=== PATIENT | female | born 1960 | race Two or more races ===

== ENCOUNTER 2022-09-21 09:33 | Outpatient (REF) | payer OTHER, SELFPAY ==
[2022-09-21 09:54] VITALS: BP 140/76; PULSE 72; RESP 16; TEMP 36.2; O2SAT 98; BMI 30.6
[2022-09-21 11:57] VITALS: BP 132/74; PULSE 72; RESP 16; O2SAT 98
== END 2022-09-21 09:34 | disposition home or self-care (01) ==
LOC: HO.MS 09:33
PROVIDERS: PCP Internal Medicine; Visit Provider Ophthalmology
PROC: (CPT 67840; principal; 2022-09-21 11:10)
DX: L98.9 Disorder of the skin and subcutaneous tissue, unspecified (principal); L82.1 Other seborrheic keratosis; H40.013 Open angle with borderline findings, low risk, bilateral; H52.4 Presbyopia; E11.9 Type 2 diabetes mellitus without complications; E78.00 Pure hypercholesterolemia, unspecified; G47.30 Sleep apnea, unspecified; Z79.84 Long term (current) use of oral hypoglycemic drugs; Z79.82 Long term (current) use of aspirin; Z79.899 Other long term (current) drug therapy; Z87.891 Personal history of nicotine dependence
CPT/HCPCS: 67840; 88305; 88331

== ENCOUNTER 2023-12-03 14:42 | Outpatient (AMB) | payer OTHER, SELFPAY ==
[2023-12-03 14:51] VITALS: BP 132/70; PULSE 90; O2SAT 97; BMI 28.4
--- NOTE | 2023-12-03 14:51 | MHC.OFFVIS ---
Intake Vital Signs 12/03/23 14:51 Height 5 ft 5 in Weight 170 lb 13.732 oz BMI 28.4 BP 132/70 Blood Pressure Location Rt brachial Position Sitting Pulse 90 Pulse Source Pulse Oximeter Pulse Oximetry (%) 97 Oxygen Delivery Method Room Air Intake Visit Reasons: Obstructive sleep apnea [employer] Required: No Allergies No Known Allergies Allergy (Verified 12/03/23 14:54) HPI HPI Comments History of Present Illness Details The patient is here for pulmonary evaluation. The patient is a 62 year woman with a known history of sleep apnea. She has been on CPAP now for numerous years. The CPAP therapy has been very affecting beneficial. She does use a nasal mask. Unfortunately causes a lot of dry mouth. I did recommend she switch over to a fullface mask. She also has significant chronic rhinitis. Moderate severity with nasal congestion. Sometimes is hard for tolerate the nasal mask with the pressures directly to her nasal passages. Explained to her that a fullface mask will help with that too. I did have an F30 I small mask available in the office which she did try on and she will go ahead and continue to try it at home. If she finds that this mass is helpful then we can go ahead and send a prescription for it. otherwise, she can go back to her nasal mask using a chinstrap. Explained to her the the dry mouth could result in significant gingival dryness that can resulting to decay. Also, the patient had a significant allergic reaction where she went to the ER just this morning after having significant swelling throughout her body. She was given IV steroids currently on prednisone. A my examination today she has significant tachycardia and also has a flow murmur appreciated. The patient is aware other murmur already. Most likely that the significant heart rate could be related to hyperglycemia with her underlying diabetes and steroid use today. The patient will monitor closely her blood sugars once she gets home. She is going to also stay hydrated. [facility] Medical History (Updated 12/05/23 @ 21:42 by Vernon Echols MD) Murmur Nasal congestion Tachycardia BRIA (obstructive sleep apnea) Social History (Updated 12/03/23 @ 14:58 by ROCÍO Damon) Patient Tobacco Use Status: Former Tobacco user Tobacco use type: Cigarette Years Smoked: 10 Years Review of Systems Const Denies fatigue Eyes Denies dry eyes ENT Reports dry mouth and Reports nasal congestion Card Denies chest pain Resp Denies cough and Denies wheezing GI Reports no additional complaints Musc Reports no additional complaints Skin/Breast Reports pruritus and Reports rash Neuro Reports no additional complaints Endo Denies fatigue Randolph/Lymph Denies lymphadenopathy Aller/Immun Denies wheezing Physical Exam Vital Signs: Last Vital Signs Pulse 90 12/03/23 14:51 BP 132/70 12/03/23 14:51 Pulse Ox 97 12/03/23 14:51 Oxygen Delivery Method Room Air 12/03/23 14:51 BMI result Body Mass Index 28.4 Const General: comfortable HEENT Head: Yes normocephalic Neck Neck: Yes supple Chest Chest palpation & inspection: normal inspection of the chest Resp Effort & Inspection: normal respiratory effort Auscultation: clear to auscultation bilaterally Cardio Rate: tachycardic Rhythm: regular rhythm Heart sounds: S1 normal heart sound present, S2 normal heart sound present and Murmur heart sound present GI Palpation (GI): Soft to palpation Skin General skin exam: no rashes or lesions noted Extrem General: Yes no clubbing, cyanosis or edema Assessment & Plan Assessment & Plan (1) BRIA (obstructive sleep apnea): Code(s): G47.33 - Obstructive sleep apnea (adult) (pediatric) (2) Tachycardia: Comment: Likely due to prednisone and likely hyperglycemia Code(s): R00.0 - Tachycardia, unspecified (3) Nasal congestion: Code(s): R09.81 - Nasal congestion (4) Murmur: Code(s): R01.1 - Cardiac murmur, unspecified Plan Continue APAP, Trial F30i small mask nasal therapy and rinsing monitor BS and stay hydrated F/U with PCP re: murmur F/U 4-6 months Coding Level of Care Code New Pt Level 4 (42572) Diagnoses BRIA (obstructive sleep apnea) G47.33 Tachycardia R00.0 Nasal congestion R09.81 Murmur R01.1 Time Spent (min) 40
== END 2023-12-03 15:17 | disposition home or self-care (01) ==
PROVIDERS: PCP Internal Medicine; Referring Provider Internal Medicine; Visit Provider Hospitalist
DX: G47.33 Obstructive sleep apnea (adult) (pediatric) (principal); R00.0 Tachycardia, unspecified; R09.81 Nasal congestion; R01.1 Cardiac murmur, unspecified
CPT/HCPCS: 99204

== ENCOUNTER → 2023-12-03 14:42 | Outpatient (BNVA) | payer OTHER, SELFPAY | PROVIDERS: PCP Internal Medicine; Referring Provider Internal Medicine; Visit Provider Hospitalist | DX: G47.33 Obstructive sleep apnea (adult) (pediatric) (principal); R00.0 Tachycardia, unspecified; R09.81 Nasal congestion; R01.1 Cardiac murmur, unspecified | CPT/HCPCS: 99202 ==

== ENCOUNTER 2024-06-01 08:46 | Outpatient (AMB) | payer OTHER, SELFPAY ==
--- NOTE | 2024-06-01 08:48 | MHC.OFFVIS ---
Vital Signs 06/01/24 08:49 Height 5 ft 5 in Weight 171 lb BMI 28.5 BP 128/70 Blood Pressure Location Lt brachial Position Sitting Pulse 74 Pulse Source Pulse Oximeter Pulse Oximetry (%) 98 Oxygen Delivery Method Room Air Intake Visit Reasons: Obstructive sleep apnea [employer] Required: No Allergies No Known Allergies Allergy (Verified 06/01/24 08:52) HPI Comments Details: The patient is a 63 year woman with a known history of sleep apnea. She has been on CPAP now for numerous years. The CPAP therapy has been very affecting beneficial. She does use a nasal mask. Unfortunately causes a lot of dry mouth. I did recommend she switch over to a fullface mask. She also has significant chronic rhinitis. Moderate severity with nasal congestion. Sometimes is hard for tolerate the nasal mask with the pressures directly to her nasal passages. Explained to her that a fullface mask will help with that too. I did have an F30 I small mask available in the office which she did try on and she will go ahead and continue to try it at home. If she finds that this mass is helpful then we can go ahead and send a prescription for it. otherwise, she can go back to her nasal mask using a chinstrap. Explained to her the the dry mouth could result in significant gingival dryness that can resulting to decay. Also, the patient had a significant allergic reaction where she went to the ER just this morning after having significant swelling throughout her body. She was given IV steroids currently on prednisone. A my examination today she has significant tachycardia and also has a flow murmur appreciated. The patient is aware other murmur already. Most likely that the significant heart rate could be related to hyperglycemia with her underlying diabetes and steroid use today. The patient will monitor closely her blood sugars once she gets home. She is going to also stay hydrated. 06/01/2024 The patient is here for a pulmonary follow up visit. Overall doing well. Did not tolerate the F30 mask. Prefers her nasal mask, but having a dry mouth. I will request a chin strap for her. Also adjusted her CPAP 8 to APAP 6-10. She will call if any issues. He nasal congestion is overall better. Still has a post nasal drip and cough, but mild and intermitent. [facility] Medical History (Updated 06/02/24 @ 14:02 by Vernon Echols MD) Murmur Nasal congestion Tachycardia BRIA (obstructive sleep apnea) Social History (Updated 12/03/23 @ 14:58 by ROCÍO Damon) Patient Tobacco Use Status: Former Tobacco user Tobacco use type: Cigarette Years Smoked: 10 Years Review of Systems Const Denies fatigue Eyes Denies dry eyes ENT Reports dry mouth and Reports nasal congestion Card Denies chest pain Resp Denies cough and Denies wheezing GI Reports no additional complaints Musc Reports no additional complaints Skin/Breast Reports pruritus and Reports rash Neuro Reports no additional complaints Endo Denies fatigue Randolph/Lymph Denies lymphadenopathy Aller/Immun Denies wheezing Physical Exam Vital Signs: Last Vital Signs Pulse 74 06/01/24 08:49 BP 128/70 06/01/24 08:49 Pulse Ox 98 06/01/24 08:49 Oxygen Delivery Method Room Air 06/01/24 08:49 BMI result Body Mass Index 28.5 Const General: comfortable HEENT Head: Yes normocephalic Neck Neck: Yes supple Chest Chest palpation & inspection: normal inspection of the chest Resp Effort & Inspection: normal respiratory effort Auscultation: clear to auscultation bilaterally Cardio Rate: tachycardic Rhythm: regular rhythm Heart sounds: S1 normal heart sound present, S2 normal heart sound present and Murmur heart sound present GI Palpation (GI): Soft to palpation Skin General skin exam: no rashes or lesions noted Extrem General: Yes no clubbing, cyanosis or edema Assessment & Plan Assessment & Plan (1) BRIA (obstructive sleep apnea): Code(s): G47.33 - Obstructive sleep apnea (adult) (pediatric) Category: Medical (2) Tachycardia: Comment: better Code(s): R00.0 - Tachycardia, unspecified Category: Medical (3) Nasal congestion: Code(s): R09.81 - Nasal congestion Category: Medical (4) Murmur: Code(s): R01.1 - Cardiac murmur, unspecified Category: Medical Plan Continue APAP, needs chin strap with nasal mask nasal therapy and rinsing F/U with PCP re: murmur F/U 6-8 months Coding Level of Care Code Est Pt Level 4 (52292) Diagnoses BRIA (obstructive sleep apnea) G47.33 Tachycardia R00.0 Nasal congestion R09.81 Murmur R01.1 Time Spent (min) 16
[2024-06-01 08:49] VITALS: BP 128/70; PULSE 74; O2SAT 98; BMI 28.5
== END 2024-06-01 09:18 | disposition home or self-care (01) ==
PROVIDERS: PCP Internal Medicine; Visit Provider Hospitalist
DX: G47.33 Obstructive sleep apnea (adult) (pediatric) (principal); R00.0 Tachycardia, unspecified; R09.81 Nasal congestion; R01.1 Cardiac murmur, unspecified
CPT/HCPCS: 99214

== ENCOUNTER → 2024-06-01 08:46 | Outpatient (BNVA) | payer OTHER, SELFPAY | PROVIDERS: PCP Internal Medicine; Visit Provider Hospitalist | DX: G47.33 Obstructive sleep apnea (adult) (pediatric) (principal); R00.0 Tachycardia, unspecified; R09.81 Nasal congestion; R01.1 Cardiac murmur, unspecified | CPT/HCPCS: 99212 ==

== ENCOUNTER 2024-12-08 12:51 | Outpatient (AMB) | payer OTHER, SELFPAY ==
[2024-12-08 13:07] VITALS: BP 126/70; PULSE 78; O2SAT 98; BMI 28.4
--- NOTE | 2024-12-08 13:07 | MHC.OFFVIS ---
Vital Signs 12/08/24 13:07 Height 5 ft 5 in Weight 170 lb 13.732 oz BMI 28.4 BP 126/70 Blood Pressure Location Rt brachial Position Sitting Pulse 78 Pulse Source Pulse Oximeter Pulse Oximetry (%) 98 Oxygen Delivery Method Room Air Intake Visit Reasons: Obstructive sleep apnea Allergies No Known Allergies Allergy (Verified 12/08/24 13:11) HPI Comments Details: The patient is a 63 year woman with a known history of sleep apnea. She has been on CPAP now for numerous years. The CPAP therapy has been very affecting beneficial. She does use a nasal mask. Unfortunately causes a lot of dry mouth. I did recommend she switch over to a fullface mask. She also has significant chronic rhinitis. Moderate severity with nasal congestion. Sometimes is hard for tolerate the nasal mask with the pressures directly to her nasal passages. Explained to her that a fullface mask will help with that too. I did have an F30 I small mask available in the office which she did try on and she will go ahead and continue to try it at home. If she finds that this mass is helpful then we can go ahead and send a prescription for it. otherwise, she can go back to her nasal mask using a chinstrap. Explained to her the the dry mouth could result in significant gingival dryness that can resulting to decay. Also, the patient had a significant allergic reaction where she went to the ER just this morning after having significant swelling throughout her body. She was given IV steroids currently on prednisone. A my examination today she has significant tachycardia and also has a flow murmur appreciated. The patient is aware other murmur already. Most likely that the significant heart rate could be related to hyperglycemia with her underlying diabetes and steroid use today. The patient will monitor closely her blood sugars once she gets home. She is going to also stay hydrated. 12/08/2024 The patient is here for a pulmonary follow up visit. Overall doing well. Did not tolerate the F30 mask. Prefers her nasal mask, but having a dry mouth. I will request a chin strap for her. Also adjusted her CPAP 8 to APAP 6-10. She will call if any issues. He nasal congestion is overall better. Still has a post nasal drip and cough, but mild and intermitent. [facility] Medical History (Updated 06/02/24 @ 14:02 by Vernon Echols MD) Murmur Nasal congestion Tachycardia BRIA (obstructive sleep apnea) Social History Patient Tobacco Use Status: Former Tobacco user Tobacco use type: Cigarette Years Smoked: 10 Years Review of Systems Const Denies fatigue Eyes Denies dry eyes ENT Reports dry mouth and Reports nasal congestion Card Denies chest pain Resp Denies cough and Denies wheezing GI Reports no additional complaints Musc Reports no additional complaints Skin/Breast Reports pruritus and Reports rash Neuro Reports no additional complaints Endo Denies fatigue Randolph/Lymph Denies lymphadenopathy Aller/Immun Denies wheezing Physical Exam Vital Signs: Last Vital Signs Pulse 78 12/08/24 13:07 BP 126/70 12/08/24 13:07 Pulse Ox 98 12/08/24 13:07 Oxygen Delivery Method Room Air 12/08/24 13:07 BMI result Body Mass Index 28.4 Const General: comfortable HEENT Head: Yes normocephalic Neck Neck: Yes supple Chest Chest palpation & inspection: normal inspection of the chest Resp Effort & Inspection: normal respiratory effort Auscultation: clear to auscultation bilaterally Cardio Rate: tachycardic Rhythm: regular rhythm Heart sounds: S1 normal heart sound present, S2 normal heart sound present and Murmur heart sound present GI Palpation (GI): Soft to palpation Skin General skin exam: no rashes or lesions noted Extrem General: Yes no clubbing, cyanosis or edema Assessment & Plan Assessment & Plan (1) BRIA (obstructive sleep apnea): Code(s): G47.33 - Obstructive sleep apnea (adult) (pediatric) Category: Medical (2) Tachycardia: Comment: better Code(s): R00.0 - Tachycardia, unspecified Category: Medical (3) Nasal congestion: Code(s): R09.81 - Nasal congestion Category: Medical (4) Murmur: Code(s): R01.1 - Cardiac murmur, unspecified Category: Medical Plan Continue APAP, needs chin strap with nasal mask nasal therapy and rinsing F/U with PCP re: murmur F/U 12 months Coding Level of Care Code Est Pt Level 4 (11885) Diagnoses BRIA (obstructive sleep apnea) G47.33 Tachycardia R00.0 Nasal congestion R09.81 Murmur R01.1 Time Spent (min) 16
--- OUTSIDE RECORDS SUMMARY | 2024-12-08 13:08 | XMS_ITS | Encounter Summary ---
Author Organization [facility] Address [address] [place] [address] Care Team Providers Care Extra Gang Supervisor Name Role Phone Thalia Sr MD Primary Care Provider [phone] Reason for Visit * Reason Onset Date Comments Cough 11/17/2024 Encounter Details Date Type Department Care Team (Late st Contact Info) Description 11/17/2024 Telephone Internal Medicine - [place] [address] [phone] Thalia Sr MD 175 [facility] [address] [place] [phone] Cough Social History Tobacco Use Types Packs/Day Years Used Date Smoking Tobacco: Former Cigarettes 0 11/08/2007 - 08/26/2019 Smokeless Tobacco: Never Alcohol Use Standard Drinks/Week Comments No 0 (1 standard drink = 0.6 oz pur e alcohol) Sex and Gender Information Value Date Recorded Sex Assigned at Not on file Gender Identity Not on file Sexual Orientation Not on file Job Start Date Occupation Industry Not on file Not on file Not on file documented as of this encounter Ordered Prescriptions Prescription Sig Dispensed Refills Start Date End Da te albuterol HFA (ProAir HFA) 90 mcg/actuation inhaler Inhale 2 puffs by mouth every 4 (four) hours if needed for wheezing or shortness of breath. 8.5 g 11/20/2024 11/23/2024 documented in this encounter Progress Notes * Brandie Lim RN - 11/20/2024 4:20 PM EST Call to pt # [phone], spoke to pt and spouse. Informed of script sent to pharmacy * Thalia Sr MD - 11/20/2024 3:38 PM EST Inhaler sent * Brandie Lim RN - 11/20/2024 2:17 PM EST Pt was at over the weekend with diagnosis of pneumonia. Pt wasn't given an inhaler or nebulizer.Pt is asking if you can order one or both to help with coughing and congestion. Pt refused an appointment. Please advise. Call to pt # [phone], spoke to pt spouse Pt was at over the weekend with diagnosis of pneumonia. Pt wasn't given an inhaler or nebulizer.Has been taking ABT since Wednesday with no improvement. Advised that ABT often takes 5-7 days to start improving s/s. Offered next day appt, spouse asked to request medication from provider and refused the appointment. * Berenice Keys - 11/20/2024 1:58 PM EST Patient now unable to speak - called on 11-17-2024 \contact partner / herminio who can relay the concern of patient - cough congestion no voice * Rogelio Canas - 11/17/2024 1:40 PM EST Patient call requires triage: Symptoms patient is presenting: Patient has a cold , fever , coughing , non productive would like to be seen as soon as possible How long has patient had these symptoms?: states it has been going on since [place] For ALL patients calling to schedule any appointment (routine, sick visit, follow up, consult, etc.) in the outpatient setting please ask the following questions: Do you have fever of higher than 101, sore throat with difficulty swallowing or severe shortness ofbreath? no If YES to any of these above symptoms, send a message to triage and do not book. Red dot. If no, an audio or video visit should be booked. Have you had close contact with someone with Coronavirus in the last 14 days? no Have you traveled abroad? no Have you traveled recently to another state outside of [place], [place], [place], [place], [place], [place], [place]? no o If yes, did you quarantine for 14 days or have a negative covid test? no If yes to any of the above, patient is not to be scheduled in office until after 14 day quarantine or negative covid test. If pain or injury related was it due to an accident at work or from a motor vehicle accident? If yes, date of accident/Injury: No If yes, gather 3rd constitution party insurance information Third Green Party Information: not applicable PCP: Thalia Sr MD Payor: [employer] PLAN / Plan: [employer] QHP / Product Type: *No Product type* / documented in this encounter Plan of Treatment Upcoming Encounters Date Type Department Care Team (Late st Contact Info) Description 01/11/2025 11:00 AM EST Appointment [facility] [address] [place] [phone] Dominik Julio MD [address] [address] 01/24/2025 2:30 PM EDT Office Visit Obstetrics and Gynecology - [address] [phone] Daniella Mclaughlin CNM [address] [place] [address] 01/29/2025 2:00 PM EDT Office Visit Endocrinology - [address] [phone] Lila Singer PA [address] [place] [address] 03/19/2025 2:30 PM EDT Office Visit Internal Medicine - [place] [address] [phone] Thalia Sr MD [address] [phone] documented as of this encounter Visit Diagnoses Not on filedocumented in this encounter Additional Health Concerns Assessment Noted Time PHQ-9 Depression Total Score: 0 10/16/20 24 9:01 PM EST documented as of this encounter Care Teams Extra Gang Supervisor Relationship Specialty Start Date End Date Thalia Sr MD [address] [phone] PCP - General Internal Medicine 05/17/19 documented as of this encounter
--- OUTSIDE RECORDS SUMMARY | 2024-12-08 13:08 | XMS_ITS | Clinical Summary ---
Author Organization [address] [place] [address] Address [address] [place] [address] Phone Care Team Providers Care Chemical Lab Supervisor Name Role Phone Thalia Sr MD Primary Care Provider [phone] Allergies Active Allergy Reactions Criticality Noted Date Comments Glipizide 06/26/2020 Lisinopril 11/14/2019 Tongue swelling Nitrofurantoin 02/07/2024 Rash on hands and itchy skin Pravastatin 06/20/2012 Pt cannot recall reaction Dulaglutide Nausea And Vomiting 10/17/2024 Medications Medication Sig Dispensed Refills Start Date End Date Status ASCORBIC ACID, VITAMIN C, ORAL Take by mouth. Activ e aspirin 81 mg EC tablet Take 1 tablet (81 mg total) by mouth 1 (one) time each day. 12/16/2023 Active diphenhydrAMINE (Banophen) 25 mg capsule Take 1 capsule (25 mg total) by mouth 1 (one) time each day. 05/18/2019 Active blood-glucose meter kit Blood Glucose Monitoring Suppl (FreeStyle Dillon Lite) w/Device Kit Use to check blood sugar daily 01/13/2023 Active calcium carbonate-vitam in D (Calcium 600 + D,3,) 600 mg-10 mcg (400 unit) per tablet Take 1 tablet by mouth 2 (two) times a day. 04/11/2024 Active facial mask misc CPAP Historical (HISTORICAL CPAP) Inhale into the lungs. [employer] Active FREESTYLE LANCETS MISC USE TO CHECK BLOOD SUGAR DAILY DIRECTED 02/10/2024 Active blood sugar diagnostic (FreeStyle Lite Strips) test strip USE TO TEST BLOOD SUGAR EVERY DAY AND NEEDED 05/31/2023 Active POTASSIUM CHLORIDE ORAL Take 50 mg by mouth 1 (one) time each day. Active ZINC ORAL Take by mouth 1 (one) time each day. Zinc 50 MG Cap Active celecoxib (CeleBREX) 200 mg capsule Take 1 capsule (200 mg total) by mouth 2 (two) times a day. 12/25/2021 Active cholecalciferol (VITAMIN D-3) 50 mcg (2,000 unit) capsule Take 1 capsule (2,000 Units total) by mouth 1 (one) time each day. 08/11/2023 Active EPINEPHrine (EpiPen 2-Eyad) 0.3 mg/0.3 mL injection Inject 0.3 mg/mL under the skin 1 (one) time each day if needed (for Other.). 02/13/2024 Active estradioL (ESTRACE) 0.01 % (0.1 mg/gram) vaginal cream Place vaginally three times a week. 05/05/2019 Active metFORMIN XR (GLUCOPHAGE-XR) 500 mg 24 hr tablet Take 2 tablets (1,000 mg total) by mouth 2 (two) times a day. 11/22/2023 Active prochlorperazin e (COMPAZINE) 10 mg tablet Take 1 tablet (10 mg total) by mouth every 8 (eight) hours if needed for nausea. 02/09/2024 Active pyridoxine (B-6) 100 mg tablet 1 tablet (100 mg total). 09/30/2015 Active atorvastatin (LIPITOR) 20 mg tablet TAKE 1 TABLET BY MOUTH EVERY DAY 90 tablet 3 11/02/2024 Active semaglutide (OZEMPIC) 0.25 mg or 0.5 mg (2 mg/3 mL) injection penIndications: Type 2 diabetes mellitus without complication, without long-term current use of insulin ([facility]) Inject 0.25 mg under the skin every 7 (seven) days. 2 mL 2 11/23/2024 Active losartan (COZAAR) 50 mg tablet TAKE 1 TABLET BY MOUTH EVERY DAY 90 tablet 5 11/23/2024 Active albuterol HFA (Ventolin HFA) 90 mcg/actuation inhaler Inhale 2 puffs by mouth 4 (four) times a day. 18 each 1 11/23/2024 Active pantoprazole (PROTONIX) 40 mg EC tablet Take 1 tablet (40 mg total) by mouth 1 (one) time each day. 90 tablet 1 11/23/2024 Active losartan (COZAAR) 50 mg tablet Take 1 tablet (50 mg total) by mouth 1 (one) time each day. 11/22/2023 5 Discontinued pantoprazole (PROTONIX) 40 mg EC tablet Take 1 tablet (40 mg total) by mouth 1 (one) time each day. 11/22/2023 5 Discontinued semaglutide (OZEMPIC) 0.25 mg or 0.5 mg (2 mg/3 mL) injection penIndications: Type 2 diabetes mellitus without complication, without long-term current use of insulin ([facility]) Inject 0.25 mg under the skin every 7 (seven) days. 2 mL 2 10/17/2024 5 Discontinued(Reo rder) pantoprazole (PROTONIX) 40 mg EC tablet TAKE 1 TABLET BY MOUTH EVERY DAY 90 tablet 1 11/13/2024 5 Discontinued(Reo rder) albuterol HFA (ProAir HFA) 90 mcg/actuation inhaler Inhale 2 puffs by mouth every 4 (four) hours if needed for wheezing or shortness of breath. 8.5 g 11/20/2024 5 Discontinued Active Problems Problem Noted Date Diagnosed Date Abnormal EKG 08/16/2024 Dyspnea 08/25/2021 Overview (08/16/2024): Last Assessment & Plan: The patient has been experiencing shortness of breath with exertion. Her shortness of breath is associated with a mild chest tightness sensation. Recent stress echocardiogram did not show any evidence of ischemic heart disease. Her BNP was noted to be normal and she does not have physical examination evidence of volume overload to suggest heart failure. Therefore, we must consider the possibility of underlying pulmonary disease as a cause of her shortness of breath. This is particularly important given her history of smoking. Therefore, we will refer the patient for a pulmonary function test. HTN (hypertension) 08/25/2021 Overview (08/16/2024): Last Assessment & Plan: The patient has a history of arterial hypertension. The patient's blood pressure today was noted to be well controlled. We'll continue the current antihypertensive medication regimen. Vulvar burning 03/22/2021 Overview (08/16/2024): Last Assessment & Plan: In the setting of well treated vulvar atrophy, and no lesions or evidence of infection, etiology is unclear. I recommended a skin barrier and following [facility] guidelines to avoid contact irritation. If not improving in next couple weeks, should return. She agreed. Diverticulosis 11/02/2018 Dysphagia 04/13/2018 Achalasia 04/13/2018 Allergic rhinitis 12/16/2017 Fatty liver 07/27/2017 Gastroesophageal reflux disease 07/27/2017 Diabetes mellitus type 2, uncomplicated 07/22/20 17 Hyperlipidemia 07/20/2017 Overview (08/16/2024): Last Assessment & Plan: The patient has a history of hyperlipidemia. The patient is currently on atorvastatin 20 mg orally daily. We will order a new lipid panel to evaluate the patient's current lipid control and determine if any adjustment are needed in the lipid lowering therapy. Obstructive sleep apnea syndrome 07/20/2017 Recurrent urinary tract infection 07/20/2017 Arthritis 04/07/2017 Anxiety disorder 11/30/2016 Osteoarthritis 10/27/2016 Glaucoma 01/05/2016 Cervical radiculopathy 02/02/2014 Encounters Date Type Department Care Team Description 11/17/2024 Telephone Internal Medicine - [address] [phone] Thalia Sr MD Cough 11/15/2024 Telephone Internal Medicine [address] [phone] Thalia Sr MD Cough 10/17/2024 2:45 PM EST Office Visit Internal Medicine [address] [phone] Thalia Sr MD Type 2 diabetes mellitus without complication, without long-term current use of insulin ([facility]) (Primary Dx); Mixed hyperlipidemia; Primary hypertension 09/27/2024 12:30 PM EST Ancillary Procedure [facility] - [address] [place] [address] Dyspnea on exertion 09/20/2024 Telephone Endocrinology - [address] [phone] Lila Singer PA triage from Last 3 Months Immunizations Name Administration Dates Next Due Hepatitis A-Hepatitis B Adul t (Twinrix) 18yo and older 01/04/2012 Hepatitis B (Qzfrbed-U-Rsuva , Recombivax HB-Adult) 19yo and older 09/19/2012,04/18/2012 Influenza trivalent, 0.5mL, preservative free (Fluarix; FluLaval; Fluzone) ages 6mo and older (Afluria) 3 years and older 10/27/2016,09/19/2012,08/31/2011 Pneumococcal conjugate 13 va lent (Prevnar 13, PCV13) 2mo and older 10/22/2020,12/16/2017 Pneumococcal polysaccharide 23 valent (Pneumovax 23) 2yo and older 02/21/2010 Tdap Tetanus diptheria acell ular pertussis (Boostrix; Adacel) 7yo and older 06/04/2021,02/21/2010 Surgical History Surgery Date Site/Laterality Comments SECTION PROCEDURE: HISTORICAL DELIVERY Medical History Medical History Date Comments Achalasia 04/13/2018 DX:Achalasia Allergic rhinitis 12/16/2017 DX:Allergic rh initis Anxiety disorder 11/30/2016 DX:Anxiety diso rder Arthritis 04/07/2017 DX:Arthritis Diabetes mellitus type 2, un complicated (CMS/HCC) 07/22/2017 DX:Diabetes mellitus type 2, uncomplicated (HCC) Diverticulosis 11/02/2018 DX:Diverticulosi s Dysphagia 04/13/2018 DX:Dysphagia Fatty liver 07/27/2017 DX:Fatty liver Gastroesophageal reflux disease 07/27/2017 DX:Gastroesophageal reflux disease Glaucoma 01/05/2016 DX:Glaucoma History of vertigo 02/18/2018 DX:History of vertigo History of Helicobacter pylo ri infection 04/20/2013 DX:History of Helicobacter p ylori infection Hyperlipidemia 07/20/2017 DX:Hyperlipidemi a Obstructive sleep apnea syndrome 07/20/2017 DX:Obstructive sleep apnea syndrome Osteoarthritis 10/27/2016 DX:Osteoarthriti s Recurrent urinary tract infection 07/20/2017 DX:Recurrent urinary tract infection Social History Tobacco Use Types Packs/Day Years [...] file Not on file Not on file Obstetrics History Last Filed Vital Signs Vital Sign Reading Time Taken Comments Blood Pressure 120/60 10/17/2024 2:33 PM EST Pulse 76 10/17/2024 2:33 PM EST Temperature 36.2 ??C (97.1 ??F) 10/17/2024 2:33 PM ES T Respiratory Rate - - Oxygen Saturation 99% 10/17/2024 2:33 PM EST Inhaled Oxygen Concentration - - Weight 76.5 kg (168 lb 9.6 oz) 10/17/2024 2:33 P M EST Height 165.1 cm (5' 5 ) 10/17/2024 2:33 PM EST Body Mass Index 28.06 10/17/2024 2:33 PM EST Plan of Treatment Upcoming Encounters Date Type Department Care Team (Late st Contact Info) Description 01/11/2025 11:[address] [facility] [address] [place] [phone] Dominik Julio MD [address] [address] 01/24/2025 2:30 PM EDT Office Visit Obstetrics and Gynecology - [address] [phone] Daniella Mclaughlin, SAMSON [address] [place] [address] 01/29/2025 2:00 PM EDT Office Visit Endocrinology - [address] [phone] Lila Singer PA [address] [place] [address] 03/19/2025 2:30 PM EDT Office Visit Internal Medicine - [place] 175 [facility] [address] [place] [address] Thalia Sr MD 175 [facility] [address] [place] [address] Health Maintenance Due Date Last Done Comments Zoster Vaccines (1 of 2) 2011 Breast Cancer Screening 01/18/2020 01/17/2018 Colorectal Cancer Screening: Colonoscopy 10/17/2022 HIV Screening 10/17/2022 Hepatitis C Screening 10/17/2022 Social Influencers of Health Screening 10/17/2022 COVID-19 Vaccine ( season) 2024 Influenza Vaccine (#1) 2024 , 08/21/2018, 10/27/2016, Additional history exists Diabetes: Annual Retina Eye Exam 09/03/2024 09/03/2023 Cervical Cancer Screening: HPV 09/07/2024 09/07/2019 Diabetes: Annual Urine Albumin-Creatinine Ratio (uACR) 10/12/2024 10/12/2023 Diabetes: Blood Sugar Control Test (HGBA1C) 03/06/2025 09/05/2024, 05/30/2024, 05/30/2024 Diabetes: Annual Foot Exam 06/05/2025 06/05/2024 Diabetes: Annual GFR (Glomerular Filtration Rate) 09/05/2025 09/05/2024, 07/27/2024 Hypertension/CHF/CAD Annual BMP Blood Test 09/05/2025 09/05/2024, 07/27/2024 Depression Screening 10/16/2025 10/16/2024 Pneumococcal Vaccine: Pediatrics (0 to 5 Years) and At-Risk Patients (6 to 64 Years) (3 of 3 - PPSV23 or PCV20) 2026 10/22/2020, 12/16/2017, 02/21/2010 Cholesterol Screening (Lipid Panel) 05/30/2029 05/30/2024, 05/30/2024 DTaP,Tdap,and Td Vaccines (3 - Td or Tdap) 06/04/2031 06/04/2021, 02/21/2010 RSV Immunization Patients 60+ Years Old (1 - 1-dose 75+ series) 2036 Hepatitis A Vaccines Aged Out 01/04/2012 No long er eligible based on patient's age to complete this topic Hepatitis B Vaccines Completed 09/19/2012, 04/18/2012, 01/04/2012 HIB Vaccines Aged Out No longer eligi ble based on patient's age to complete this topic HPV Vaccines Aged Out No longer eligi ble based on patient's age to complete this topic IPV Vaccines Aged Out No longer eligi ble based on patient's age to complete this topic MMR Vaccines Aged Out No longer eligi ble based on patient's age to complete this topic Meningococcal ACWY Vaccine Aged Out N o longer eligible based on patient's age to complete this topic RSV Immunization Patients Under 20 months Aged Out No longer eligible based on patient's age to complete this topic Varicella Vaccines Aged Out No longer eligible based on patient's age to complete this topic Procedures Procedure Name Priority Date/Time Associated Diagnosis Comments TRANSTHORACIC ECHOCARDIOGRAM (TTE) COMPLETE Routine 09/27/2024 1:13 PM EST Dyspnea on exertion DIABETES FOOT EXAM Routine 06/05/2024 HEMOGLOBIN A1C Routine 05/30/2024 LIPID PANEL Routine 05/30/2024 URINE ALBUMIN CREATININE RATIO Routine 10/12/2023 DIABETES EYE EXAM Routine 09/03/2023 HPV Routine 09/07/2019 EUGENE SCREENING DIGITAL Routine 01/17/2018 12:42 PM EDT Encounter for screening mammogram for malignant neoplasm of breast from Last 3 Months or Most Recently Relevant to Health Maintenance Results * (ABNORMAL) TRANSTHORACIC ECHOCARDIOGRAM (TTE) COMPLETE (09/27/2024 1:13 PM EST) Left Atrium Minor [place] 5.8 cm CV PACS Left Atrium Major [place] 5.9 cm CV PACS LA Area Sys (A2C) 23 cm2 CV PACS LA Area Sys (A4C) 20 cm2 CV PACS LA Volume (BP) 63 mL CV PACS RA Area 11.7 cm2 CV PACS RA 2D Volume 25 mL CV PACS AV Mean Gradient 3 mmHg CV PACS Ao VTI 26.7 cm CV PACS AV Peak Gerry 1.2 m/s CV PACS AV Peak Gradient 6 mmHg CV PACS AV Area Continuity Equation 1.9 cm2 CV PACS AV Area Peak Velocity 1.9 cm2 CV PACS Aortic Sinus Valsalva 2.7 cm CV PACS Ascending Aorta 2.7 cm CV PACS IVSD 1.0(A) 0.6 - 0.9 cm CV PACS LVIDD 4.5 3.8 - 5.2 cm CV PACS LVIDS 2.9 2.2 - 3.5 cm CV PACS LVOT Diameter 1.7 cm CV PACS LVOT Mean Gerry 0.7 m/s CV PACS LVOT Mean Grad 2 mmHg CV PACS LVOT Mean Grad 2 mmHg CV PACS LVOT Peak VTI 22.3 cm CV PACS LVOT Peak Gerry 1.0 m/s CV PACS LVOT Peak Gradient 4 mmHg CV PACS LVPWD 1.1(A) 0.6 - 0.9 cm CV PACS MV E' Tissue Velocity Lateral 9 cm/s CV PACS MV E' Tissue Velocity Septal 7 cm/s CV PACS LVOT Area 2.3 cm2 CV PACS LVOT Stroke Volume 51 mL CV PACS E Wave Deceleration Time 187 119 - 242 ms CV PACS MV Peak A Gerry 0.26 m/s CV PACS MV Peak E Gerry 0.85 m/s CV PACS PV Acceleration Time 143 ms CV PACS RV Diastolic Basal Dimension 2.7 2.5 - 4.1 cm CV PACS RV S' 11 cm/s CV PACS TAPSE 21 mm CV PACS E/E' Ratio Septal 12 CV PACS E/E' Ratio Averaged 11 CV PACS Relative Wall Thickness ratio 0.49 CV PACS LVOT:AV VTI Index 0.84 CV PACS FS 36 % CV PACS LV Mass 2D 164 g CV PACS LVOT flow 159 mL/s CV PACS AV Velocity Ratio 0.83 CV PACS E/A Ratio 3.3 CV PACS E/E' Ratio Lateral 9 CV PACS LVOT Stroke Index 27 mL/m2 CV PACS Ascending Aorta Index 1.45 cm/m2 CV PACS RA 2D Volume Index 13 mL/m2 CV PACS KRYSTLE Index (VTI) 1.02 cm2/m2 CV PACS KRYSTLE Index (Pk Gerry) 1.02 cm2/m2 CV PACS LVIDD Index 2.42 cm/m2 CV PACS LVIDS Index 1.56 cm/m2 CV PACS LA Volume Index (BP) 34 mL/m2 CV PACS LV Mass Index 2D 88 g/m2 CV PACS BSA 1.9 m2 CV PACS Anatomical Region Laterality Modality Ultrasound Narrative 10/29/2024 1:48 PM EST ?Left ventricle cavity size is normal. Left ventricular systolic function is in the normal range with an ejection fraction of 55-60%. ?No regional LV wall motion abnormalities noted. ?Left ventricle mild concentric hypertrophy. ?Right ventricle cavity is normal. Right ventricular systolic function is normal. ?Mitral??Valve: There is mild regurgitation. Left Ventricle Left ventricle cavity size is normal. There is mild concentric hypertrophy. Systolic function is normal with an ejection fraction of 55-60%. There are no regional LV wall motion abnormalities. There is no diastolic dysfunction. Right Ventricle Right ventricle cavity appears normal. Systolic function is normal. Left Atrium Left atrium cavity size is normal. Right Atrium Right atrium cavity is normal. IVC/SVC Inferior vena cava structure is normal. RA pressures is estimated to be 3 mmHg (IVC diameter <21 mm and decreases >50% during inspiration). Mitral Valve Mitral valve structure is normal. There is mild regurgitation. There is no evidence of mitral valve stenosis. Tricuspid Valve Tricuspid valve structure is normal. There is trace regurgitation. There is no evidence of tricuspid valve stenosis. Aortic Valve The aortic valve is trileaflet. There is no regurgitation or stenosis. Pulmonic Valve Visualized portions of the pulmonic valve appear normal. No significant pulmonic valve regurgitation. There is no evidence of pulmonic valve stenosis. Ascending Aorta The aorta appears normal in size. Pericardium There is an anterior fat pad. There is no pericardial effusion. Study Details Overall the study quality was adequate. Hussein Couch MD CV ECHO PROCED URES * Diabetes Foot Exam (06/05/2024) [facility] Diabetes: Annual Foot Exam Abstracted Historical Provider MD NINOSKA Carbajal * (ABNORMAL) Hemoglobin A1c (05/30/2024) [facility] Hemoglobin A1C 7.3(A) 6.5 % Blood Venous blood specimen / Unknown Historical Provider LAB BLOOD ORDERAB LES * Lipid panel (05/30/2024) [facility] LDL/HDL Ratio 2 0 - 4 Triglycerides 115 0 - 150 mg/dL Cholesterol 148 0 - 200 mg/dL HDL 71 40 mg/dL LDL Cholesterol 54 0 - 100 mg/dL Blood Venous blood specimen / Unknown Historical Provider LAB BLOOD ORDERAB LES * Urine Albumin Creatinine Ratio (10/12/2023) [facility] Urine Albumin Creatinine Ratio Abstracted [facility] Diabetes Eye Exam (09/03/2023) [facility] Diabetes: Annual Retina Eye Exam Abstracted [facility] Provider MD NINOSKA IGLESIAS [facility] Cervical Cancer Screening: HPV (09/07/2019) [facility] Cervical Cancer Screening: HPV Negative, Abstracted Historical Provider MD NIONSKA IGLESIAS [facility] SCREENING DIGITAL (01/17/2018 12:42 PM EDT) Anatomical Region Laterality Modality Mammography 01/17/2018 9:47 AM EDT Narrative 01/17/2018 12:42 PM EDT [facility] Diagnostic Imaging Department [address] [place] [address] Patient: ??NILO WILL ?/Age/Sex: 1960 - 57 - F Unit#: ??[id number] ? Location/Status: ??SPDIMAM/REG CLI ? Mnemonic/Ordering Site: ??DIGSC/SPMAM Ordering Physician: ??MER CERVANTES MD [place] Screening Digital - 01/17/18 - 1022 INDICATION: Screening. COMPARISON: Prior mammograms dating back to 2009 including outside studies TECHNIQUE: Routine views of both breasts were obtained using full-field direct digital mammography. Computer Aided Detection was utilized. BREAST PARENCHYMAL COMPOSITION: The breast parenchyma is composed of scattered fibroglandular densities. (Category b density ) . FINDINGS: ??No suspicious mammographic abnormality in the right breast. Focal asymmetry in the mid third of the left breast. Recommend further evaluation with spot compression views in 2 projections including 90 degree mediolateral view. IMPRESSION: Focal asymmetry in the mid third of the left breast. Recommend further evaluation as described above. OVERALL FINAL ASSESSMENT: BI-RADS 0: ??Incomplete. ??Need Additional Imaging Evaluation. PQRI CPT II 3340F A negative mammogram in the presence of clinically suspicious palpable abnormality does not preclude the possibility of malignancy or alter the indications for biopsy. Note: Patient information entered into a reminder system with a target due date for the next mammogram: ??CPT II 7025F [id number] Dictating Physician: ??ARLENE GRIMES MD Electronically Signed by: ??ARLENE GRIMES MD Dic Date/Time: ??01/17/18 1237 Sign date/Time: ??01/17/18 1242 Procedure Note Arlene Grimes MD - 10/27/2022 [facility] Diagnostic Imaging Department [address] [place] [id number] Patient: SUMANNILO D.O.B./Age/Sex: 1960 - 57 - F Unit#: [id number] Location/Status: [facility] CLI Mnemonic/Ordering Site: [facility] Ordering Physician: MER CERVANTES MD [place] Screening Digital - 01/17/18 - 1022 INDICATION: Screening. COMPARISON: Prior mammograms dating back to 2009 including outsidestudies TECHNIQUE: Routine views of both breasts were obtained using full-fielddirect digital mammography. Computer Aided Detection was utilized. BREAST PARENCHYMAL COMPOSITION: The breast parenchyma is composed ofscattered fibroglandular densities. (Category b density ) . FINDINGS: No suspicious mammographic abnormality in the right breast.Focal asymmetry in the mid third of the left breast. Recommend furtherevaluation with spot compression views in 2 projections including 90 degree mediolateralview. IMPRESSION: Focal asymmetry in the mid third of the left breast. Recommend further evaluation as described above. OVERALL FINAL ASSESSMENT: BI-RADS 0: Incomplete. Need Additional Imaging Evaluation. PQRI CPT II 3340F A negative mammogram in the presence of clinically suspicious palpable abnormality does not preclude the possibility of malignancy or alter the indications for biopsy. Note: Patient information entered into a reminder system with a target duedate for the next mammogram: CPT II 7025F [id number] Dictating Physician: ARLENE GRIMES MD Electronically Signed by: ARLENE GRIMES MD Dic Date/Time: 01/17/18 1237 Sign date/Time: 01/17/18 1242 Mer Cervantes MD IMG BI PROCEDURES from Last 3 Months or Most Recently Relevant to Health Maintenance Care Teams Chemical Lab Supervisor Relationship Specialty Start Date End Date Thalia Sr MD [address] [place] [phone] PCP - General Internal Medicine 05/17/19
--- OUTSIDE RECORDS SUMMARY | 2024-12-08 13:08 | XMS_ITS | Clinical Summary ---
Author Organization [facility] Address [address] [place] [address] Care Team Providers Care Orchid Superintendent Name Role Phone Unavailable Primary Care Provider Unavailabl e Source Comments PLEASE NOTE, if this patient is a minor, it may be UNLAWFUL to discuss sensitive information that is contained in these records (such as FAMILY PLANNING, MENTAL HEALTH or SUBSTANCE ABUSE) with the minor patient's parent or other person without the patient's specific authorization.[facility] Social History Tobacco Use Types Packs/Day Years Used Date Smoking Tobacco: Never Assessed Social Connections Answer Date Recorded Connectedness 0 07/28/2024 Financial Resource Strain Answer Date R ecorded Financial Resource Strain 0 2022 Stress Answer Date Recorded Stress 0 03/09/2023 Physical Activity Answer Date Recorded Physical Activity 0 03/09/2023 Food Insecurity Answer Date Recorded Food 0 08/03/2024 Transportation Needs Answer Date Record ed Transportation 0 03/09/2023 Housing Stability Answer Date Recorded Housing 0 03/09/2023 Safety and Environment Answer Date Mitchell rded Safety 0 03/09/2023 Utilities Answer Date Recorded Utilities 0 03/09/2023 Employment Answer Date Recorded Stress 0 07/28/2024 Comments Unknown Sex and Gender Information Value Date Recorded Sex Assigned at Not on file Legal Sex Female 12:23 PM PST Gender Identity Not on file Sexual Orientation Not on file Plan of Treatment Health Maintenance Due Date Last Done Comments Diabetes Screening 1961 HPV Screening 1961 Hepatitis C Screening 1961 Lipid Screening 1961 Pap + HPV 1961 Tobacco Screening 1961 HIV Screening 1976 Annual Preventive Care Visit 1979 Hypertension Screening (#1) 1979 Imm-DTaP/Tdap/Td (1 - Tdap) 1980 Cervical Cancer Screening 1982 Pap Smear 1982 Breast Cancer Screening (Mammogram) 2001 CT Colonography 2006 Colonoscopy 2006 Colorectal Cancer Screening 2006 FIT/gFOBT 2006 Fecal DNA 2006 Flexible Sigmoidoscopy 2006 Imm-Zoster, Recombinant (1 of 2) 2011 [id number] ( season) 2024 Imm-Influenza (#1) 2024 Alcohol and Drug Screen 11/08/2024 Depression Annual Screen 11/08/2024 Cervical Ablation/Cold-Knife Conization Discontinued Cervical Cryotherapy Discontinued Colposcopy Discontinued Endometrial Biopsy Discontinued Excision/Leep Discontinued HPV Genotyping Discontinued Vaginal Pap Discontinued Vulvoscopy Discontinued Insurance [place] S[place] [place] [address] DENTAL Member Subscriber Plan / Payer (Ef fective 2021-Present) Name:Gracy Lozano Relation to Subscriber:Self Name:Gracy Lozano Payer ID:[id number] Group ID:Not on file Type:Medicaid Address: [address] [place], [place] [address] [place] [address] SAFETY NET DENTAL
--- OUTSIDE RECORDS SUMMARY | 2024-12-08 13:08 | XMS_ITS | Encounter Summary ---
Author Organization [facility] Address [address] [place] [address] Care Team Providers Care Broodmare Foreman Name Role Phone Thalia Sr MD Primary Care Provider [phone] Reason for Visit * Reason Onset Date Comments Cough 11/15/2024 Encounter Details Date Type Department Care Team (Late st Contact Info) Description 11/15/2024 Telephone Internal Medicine - [place] [address] [phone] Thalia Sr MD 175 [facility] [address] [place] [phone] Cough Social History Tobacco Use Types Packs/Day [...] on file documented as of this encounter Progress Notes * Brandie Lim RN - 11/15/2024 1:35 PM EST Call to pt spouse Herminio # [phone], spoke to herminio Body aches, fever, non productive cough, headache x 3 days. Hasn't been around anyone who has been sick and no one else in the household is sick. Provided address and phone number of [facility]. * Sheryl Hazel - 11/15/2024 1:31 PM EST Patient spouse called and requested for our office to call his phone number because patient is too sick to talk. Please advise Cb# [phone] * Brandie Lim RN - 11/15/2024 11:40 AM EST Call to pt # [phone], with stud dairy cattle farmer # [phone], left message to call back * Sheryl Hazel - 11/15/2024 11:31 AM EST Patient called and stated that she is hot to the touch, has body aches and coughing for 3 days. Please advise Cb# [phone] documented in this encounter Plan of Treatment Upcoming Encounters Date Type Department Care Team ([facility] Contact Info) Description 01/11/2025 11:00 AM EST Appointment [facility] Endoscopy [address] [place] [phone] Dominik Julio MD [address] [address] 01/24/2025 2:30 PM EDT Office Visit Obstetrics and Gynecology - [address] [phone] Daniella Mclaughlin CN [address] [place], [place] 01/29/2025 2:00 PM EDT Office Visit Endocrinology - [place] [id number] [place] [address] Lila Singer PA [address] [place] [address] 03/19/2025 2:30 PM EDT Office Visit Internal Medicine - [place] [address] [phone] Thalia Sr MD [address] [phone] documented as of this encounter Visit Diagnoses Not on filedocumented in this encounter Additional Health Concerns Assessment Noted Time PHQ-9 Depression Total Score: 0 10/16/20 24 9:01 PM EST documented as of this encounter Care Teams Broodmare Foreman Relationship Specialty Start Date End Date Thalia Sr MD [address] [phone] PCP - General Internal Medicine 05/17/19 documented as of this encounter
== END 2024-12-08 13:47 | disposition home or self-care (01) ==
PROVIDERS: PCP Internal Medicine; Visit Provider Hospitalist
DX: G47.33 Obstructive sleep apnea (adult) (pediatric) (principal); R00.0 Tachycardia, unspecified; R09.81 Nasal congestion; R01.1 Cardiac murmur, unspecified
CPT/HCPCS: 99214

== ENCOUNTER → 2024-12-08 12:51 | Outpatient (BNVA) | payer OTHER, SELFPAY | PROVIDERS: PCP Internal Medicine; Visit Provider Hospitalist | DX: G47.33 Obstructive sleep apnea (adult) (pediatric) (principal); R00.0 Tachycardia, unspecified; R01.1 Cardiac murmur, unspecified; R09.81 Nasal congestion; Z79.52 Long term (current) use of systemic steroids; Z99.89 Dependence on other enabling machines and devices | CPT/HCPCS: 99212 ==

== ENCOUNTER 2025-06-08 12:53 | Outpatient (AMB) | payer OTHER, SELFPAY ==
--- OUTSIDE RECORDS SUMMARY | 2025-06-08 12:54 | XMS_ITS | Encounter Summary ---
Author Organization [facility] Address [address] [place] [address] Care Team Providers Care Medical Fee Clerk Name Role Phone Thalia Sr MD Primary Care Provider [phone] Encounter Details Date Type Department Care Team (Late st Contact Info) Description 06/01/[address] [facility] - Main Lab [address] [place] [phone] Mary Beth Ling PA [address] [place] [address] Urinary tract infection, site not specified Social History Tobacco Use Types Packs/Day Years Used Date Smoking Tobacco: Former Cigarettes 0 11/08/2007 - 08/26/2019 Smokeless Tobacco: Never Alcohol Use Standard Drinks/Week Comments No 0 (1 standard drink = 0.6 oz pur e alcohol) Interpersonal Safety Answer Date Record ed Physical Abuse 01/11/2025 Verbal Abuse 01/11/2025 Comments No Sex and Gender Information Value Date Recorded Sex Assigned at Female 12/29/2024 12:08 PM EST Legal Sex Female 10:04 AM EST Gender Identity Female 12/29/2024 12:08 PM EST Sexual Orientation Straight 12/29/2024 12 :08 PM EST documented as of this encounter Plan of Treatment Upcoming Encounters Date Type Department Care Team (Late Contact Info) Description 06/25/2025 9:15 AM EDT Appointment [facility] Xray [address] [place] [phone] 08/14/2025 1:40 PM EDT Office Visit Gastroenterology - [place] 175 [facility] [address] [phone] Madeline Lion PA [address] [address] 08/20/2025 2:30 PM EDT Office Visit Internal Medicine - [place] [address] [phone] Thalia Sr MD [address] [phone] 09/03/2025 2:00 PM EDT Office Visit Endocrinology [facility] [address] [place] [address] Lila Singer PA [address] [place] [address] documented as of this encounter Procedures Procedure Name Priority Date/Time Associated Diagnosis Comments CULTURE URINE Routine 06/01/2025 12:00 AM EDT Urinary tract infection, site not specified documented in this encounter Results * (ABNORMAL) Culture urine (06/01/2025 12:00 AM EDT) Culture, Urine >=100,000 CFU/mL Escherichia coli(A) IVY 06/03/2025 9:36 AM EDT [facility] Urine Urine specimen obtained by clean catch procedure / Unknown 06/01/2025 06/01/2025 7:01 PM EDT Narrative Organism Antibiotic Method Susceptibility Escherichia coli Amoxicillin/Clavulanate IVY 8 ug/ml: Susceptible Escherichia coli Ampicillin/Sulbactam IVY 16 ug/ml: Intermediate Escherichia coli Piperacillin/Tazobactam IVY <=4 ug/ml: Susceptible Escherichia coli Cefazolin (Urine) IVY <=1 ug/ml: Susceptible Escherichia coli Cefoxitin IVY 8 ug/ml: Susceptible Escherichia coli Ceftazidime IVY <=0.5 ug/ml: Susceptible Escherichia coli Ceftriaxone IVY <=0.25 ug/ml: Susceptible Escherichia coli Cefepime IVY <=0.12 ug/ml: Susceptible Escherichia coli Meropenem IVY <=0.25 ug/ml: Susceptible Escherichia coli Amikacin IVY 4 ug/ml: Susceptible Escherichia coli Gentamicin IVY <=1 ug/ml: Susceptible Escherichia coli Ciprofloxacin IVY >=4 ug/ml: Resistant Escherichia coli Levofloxacin IVY 4 ug/ml: Resistant Escherichia coli Nitrofurantoin IVY <=16 ug/ml: Susceptible Escherichia coli Trimethoprim/Sulfamethoxazole IVY >=320 ug/ml: Resistant us Mayr Beth [facility] MICROBIOLOGY - GENERAL ORD ERABLES Final Result [facility] [address] [place] [address], documented in this encounter Visit Diagnoses Diagnosis Urinary tract infection, site not specified documented in this encounter Additional Health Concerns Assessment Noted Time PHQ-9 Depression Total Score: 0 01/25/20 25 11:59 AM EDT documented as of this encounter Care Teams Medical Fee Clerk Relationship Specialty Start Date End Date Thalia Sr MD [address] [phone] PCP - General Internal Medicine 05/17/19 documented as of this encounter
--- OUTSIDE RECORDS SUMMARY | 2025-06-08 12:54 | XMS_ITS ---
Author Name [facility] Organization Unknown Care Team Organization Name Specialty Phone Email Start Date End Da te [facility] Primary Care 09/15/2022 06/26/20 24
--- OUTSIDE RECORDS SUMMARY | 2025-06-08 12:54 | XMS_ITS | Clinical Summary ---
Author Organization [facility] Address [address] [place] [address] Care Team Providers Care Mixing And Dispensing Supervisor Name Role Phone Unavailable Primary Care Provider [...] Health Maintenance Due Date Last Done Comments Anxiety Screening 1961 Diabetes Screening 1961 HPV Screening 1961 Hepatitis C Screening 1961 Lipid Screening 1961 Pap + HPV 1961 Tobacco Screening 1961 HIV Screening 1976 Hypertension Screening (#1) 1979 Imm-DTaP/Tdap/Td (1 - Tdap) 1980 Cervical Cancer Screening 1982 Pap Smear 1982 Breast Cancer Screening (Mammogram) 2001 CT Colonography 2006 Colonoscopy 2006 Colorectal Cancer Screening 2006 FIT/gFOBT 2006 Fecal DNA 2006 Flexible Sigmoidoscopy 2006 Imm-Pneumococcal 50+ (1 of 1 - PCV) 2011 Imm-Zoster, Recombinant (1 of 2) 2011 [id number] (1 - 2023- season) 2024 Alcohol and Drug Screen 11/08/2024 Depression Annual Screen 11/08/2024 Imm-Influenza (#1) 2025 Cervical Ablation/Cold-Knife Conization Discontinued Cervical Cryotherapy Discontinued Colposcopy Discontinued Endometrial Biopsy Discontinued Excision/Leep Discontinued HPV Genotyping Discontinued Vaginal Pap Discontinued Vulvoscopy Discontinued Insurance [place] Member Subscriber Plan / Payer (Ef fective 2018-Present) Name:Gracy Lozano Relation to Subscriber:Self Name:Gracy Lozano Payer ID:[id number] Group ID:Not on file Type:Medicaid Address: [address] [place] [address] DENTAL Member Subscriber Plan / Payer (Ef fective 2021-Present) Name:Gracy Lozano Relation to Subscriber:Self Name:Gracy Lozano Payer ID:[id number] Group ID:Not on file Type:Medicaid Address: [address] SAFETY NET DENTAL
[2025-06-08 12:56] VITALS: BP 126/56; PULSE 79; O2SAT 97; BMI 27.9
--- NOTE | 2025-06-08 12:56 | A.OFFVIS_ITS ---
Vital Signs 06/08/25 12:56 Height 5 ft 5 in Weight 167 lb 8.821 oz BMI 27.9 BP 126/56 L Blood Pressure Location Lt brachial Position Sitting Pulse 79 Pulse Source Pulse Oximeter Pulse Oximetry (%) 97 Oxygen Delivery Method Room Air Intake Visit Reasons: Obstructive sleep apnea Allergies nitrofurantoin Allergy (Severe, Verified 06/08/25 12:59) Unknown HPI Comments Details: The patient is a 64 year woman with a known history of sleep apnea. She has been on CPAP now for numerous years. The CPAP therapy has been very affecting beneficial. She does use a nasal mask. Unfortunately causes a lot of dry mouth. I did recommend she switch over to a fullface mask. She also has significant chronic rhinitis. Moderate severity with nasal congestion. Sometimes is hard for tolerate the nasal mask with the pressures directly to her nasal passages. Explained to her that a fullface mask will help with that too. I did have an F30 I small mask available in the office which she did try on and she will go ahead and continue to try it at home. If she finds that this mass is helpful then we can go ahead and send a prescription for it. otherwise, she can go back to her nasal mask using a chinstrap. Explained to her the the dry mouth could result in significant gingival dryness that can resulting to decay. Also, the patient had a significant allergic reaction where she went to the ER just this morning after having significant swelling throughout her body. She was given IV steroids currently on prednisone. A my examination today she has significant tachycardia and also has a flow murmur appreciated. The patient is aware other murmur already. Most likely that the significant heart rate could be related to hyperglycemia with her underlying diabetes and steroid use today. The patient will monitor closely her blood sugars once she gets home. She is going to also stay hydrated. 12/08/2024 The patient is here for a pulmonary follow up visit. Overall doing well. Did not tolerate the F30 mask. Prefers her nasal mask, but having a dry mouth. I will request a chin strap for her. Also adjusted her CPAP 8 to APAP 6- 10. She will call if any issues. He nasal congestion is overall better. Still has a post nasal drip and cough, but mild and intermitent. 06/08/2025 the patient is here for a pulmonary follow-up visit. Overall she is doing okay. She did get her new PAP machine which she is tolerating well. She does have a nasal mask that she is using because she can not tolerate the F30 mask. Seems to leak a lot. In the meantime she does have significant amount of air leakage through mouth with 17 L/min average. She does not like to use a chinstrap because is too tight. I did advise her that she needs to go to a fullface mask. I did have an F20 medium AirTouch foam mask available and she did try it and she did like it. Therefore I will requested. She also needs the climate tubing. Will go ahead and request that from [facility] as well. She did have increased apneic episodes about 4 episodes an hour which for the most part were central. Therefore I change the pressures minimum pressure 7 maximum pressure 10. She does have a ramp of 4. Will see how she does with those pressures. From a respiratory status the patient is doing well. She is using her nasal sprays for her nose. No issues there. If she has any issues she can always call. Otherwise will follow-up in a year's time. [facility] Medical History (Updated 06/02/24 @ 14:02 by Vernon Echols MD) Murmur Nasal congestion Tachycardia BRIA (obstructive sleep apnea) Social History Patient Tobacco Use Status: Former Tobacco user Tobacco use type: Cigarette Years Smoked: 10 Years Review of Systems Const Denies fatigue Eyes Denies dry eyes ENT Reports dry mouth and Reports nasal congestion Card Denies chest pain Resp Denies cough and Denies wheezing GI Reports no additional complaints Musc Reports no additional complaints Skin/Breast Reports pruritus and Reports rash Neuro Reports no additional complaints Endo Denies fatigue Randolph/Lymph Denies lymphadenopathy Aller/Immun Denies wheezing Physical Exam Vital Signs: Last Vital Signs Pulse 79 06/08/25 12:56 BP 126/56 L 06/08/25 12:56 Pulse Ox 97 06/08/25 12:56 Oxygen Delivery Method Room Air 06/08/25 12:56 BMI result Body Mass Index 27.9 Const General: comfortable HEENT Head: Yes normocephalic Neck Neck: Yes supple Chest Chest palpation & inspection: normal inspection of the chest Resp Effort & Inspection: normal respiratory effort Auscultation: clear to auscultation bilaterally Cardio Rate: tachycardic Rhythm: regular rhythm Heart sounds: S1 normal heart sound present, S2 normal heart sound present and Murmur heart sound present GI Palpation (GI): Soft to palpation Skin General skin exam: no rashes or lesions noted Extrem General: Yes no clubbing, cyanosis or edema Assessment & Plan Assessment & Plan (1) BRIA (obstructive sleep apnea): Code(s): G47.33 - Obstructive sleep apnea (adult) (pediatric) Category: Medical (2) Nasal congestion: Code(s): R09.81 - Nasal congestion Category: Medical Plan Continue APAP, Trial F20 Airtouch Med nasal therapy and rinsing F/U 12 months Coding Level of Care Code Tele Est Pt Level 4 (59796) Diagnoses BRIA (obstructive sleep apnea) G47.33 Nasal congestion R09.81 Time Spent (min) 17
== END 2025-06-08 15:05 | disposition home or self-care (01) ==
LOC: HO.HPS 12:53
PROVIDERS: PCP Internal Medicine; Visit Provider Hospitalist
DX: G47.33 Obstructive sleep apnea (adult) (pediatric) (principal); R09.81 Nasal congestion
CPT/HCPCS: 99214